=== PATIENT | male | born 1980 | race Caucasian/White ===

== ENCOUNTER 2020-05-29 12:56 | Outpatient (REF) | payer OTHER, SELFPAY ==
--- NOTE | 2020-05-29 | US_ITS ---
EXAMINATION: US THYROID CLINICAL INFORMATION: Nontoxic single thyroid nodule. COMPARISON: None. TECHNIQUE: Linear transducer heller-scale and color Doppler examination with attention to the region of the thyroid. FINDINGS: SIZE: Measurements of the thyroid lobes and nodules are given in sagittal, anteroposterior and transverse dimensions respectively. Right Thyroid Lobe: 4.7 x 1.6 x 1.9 cm, volume 7.2 mL. Parenchyma: The gland echotexture is homogeneous. Thyroid vascularity is normal. Left Thyroid Lobe: 5.0 x 1.9 x 1.6 cm, volume 8.2 mL. Parenchyma: The gland echotexture is homogeneous. Thyroid vascularity is normal. Isthmus: 0.5 cm in maximum AP dimension. RIGHT THYROID LOBE: No nodules. ISTHMUS: No nodules. LEFT THYROID LOBE: No nodules. NODES: No lymphadenopathy is seen in the tissue surrounding the thyroid gland. US/US thyroid IMPRESSION: Normal thyroid gland with no nodule or mass seen. No abnormal vascularity.
--- NOTE | 2020-05-29 | US_ITS ---
EXAMINATION: US SCROTUM CLINICAL INFORMATION: Right lower quadrant pain. COMPARISON: None TECHNIQUE: A sonogram of the scrotum was performed assessing heller-scale appearance and color Doppler flow. Spectral Doppler analysis of the arterial and venous flow were performed in the testes bilaterally. FINDINGS: RIGHT: Right testicle measures 4.7 x 2.3 x 3.0 cm, volume 16.6 mL. No focal testicular parenchymal lesions are visualized. Spectral Doppler analysis of the arterial and venous flow is normal in the right testis. Right epididymal head is normal in size. No right hydrocele or varicocele is seen. Right epididymal Doppler flow is normal. LEFT: Left testicle measures 4.2 x 2.4 x 3.0 cm, volume 15.9 mL. No focal testicular parenchymal lesions are visualized. Spectral Doppler analysis of the arterial and venous flow is normal in the left testis. Left epididymal head is enlarged by a cyst. There is a smooth thin walled left epididymal head cyst or spermatocele measuring 1.1 cm. No left hydrocele or varicocele is seen. Left epididymal Doppler flow is normal. US/US scrotum IMPRESSION: No focal abnormality of either testicle. There is flow present within each testicle. There is a 1.1 cm left epididymal head cyst or spermatocele
== END 2020-05-29 12:57 | disposition home or self-care (01) ==
LOC: HO.HMGCX 12:56
DX: R10.31 Right lower quadrant pain (principal); R53.83 Other fatigue; E04.1 Nontoxic single thyroid nodule
CPT/HCPCS: 76536; 76870